=== PATIENT | male | born 1980 | race Caucasian/White ===

== ENCOUNTER 2018-02-27 23:43 | Emergency (ER) | payer OTHER ==
[~2018-02-27] VITALS: Ht 167.6 cm; Wt 111.1 kg
[2018-02-28] MEDS ORDERED: DOLOGESIC 500-1 EACH PO (04:13)
[2018-02-28] MEDS ORDERED: CLARITIN-D 121 EACH PO (04:13)
[2018-03-04] MEDS ORDERED: ADULT ASPIRIN81 MG (18:26)
== END 2018-02-28 | disposition home or self-care (01) ==
LOC: ER 23:43
DX: B34.9 Viral infection, unspecified (principal); R50.9 Fever, unspecified

== ENCOUNTER → 2018-03-04 | Emergency (ER) | payer OTHER ==
[~2018-03-04] VITALS: Ht 167.6 cm; Wt 115.2 kg
[~2018-03-04] MED LIST: ADULT ASPIRIN81 MG; CLARITIN-D 121 EACH PO; DOLOGESIC 500-1 EACH PO
== END | disposition home or self-care (01) ==
LOC: ER 17:53 → CPU-OBS 19:44 → ER 19:44
DX: R07.89 Other chest pain (principal)
CPT/HCPCS: G0378; G0379; 93005